=== PATIENT | male | born 1970 | race Caucasian/White ===

== ENCOUNTER 2017-12-30 15:57 | Emergency (ER) | payer BC ==
[2017-12-30 16:42] VITALS: BP 136/92
--- NOTE | 2017-12-30 16:57 | UC ---
Lower Extremity/Ankle HPI - HPI Summary HPI Summary: Patient states that he roused from sleep just this past Friday morning with pain in the outside of his right ankle and some swelling. He notes that this has gotten progressively worse. He states that at times it hurts so bad he is unable to walk on it. He denies any history of injury, fever, chills and overuse. He denies any history of other joint pains and there is no associated history of tick bite. He does have history of chronic back pain which requires a hydrocodone pill twice daily; however, that is not relieving the pain in his ankle. Patient also denies any history of gout. - History of Current Complaint Chief Complaint: UCLowerExtremity Stated Complaint: RT ANKLE CONCERN Time Seen by Provider: 12/30/17 16:47 Hx Obtained From: Patient Onset/Duration: Gradual Onset Pain Intensity: 8 Aggravating Factor(s): Standing, Ambulation Alleviating Factor(s): Nothing Able to Bear Weight: Yes - Allergies/Home Medications Allergies/Adverse Reactions: Allergies Allergy/AdvReac Type Severity Reaction Status Date / Time No Known Allergies Allergy Verified 12/30/17 16:35 Home Medications: Home Medications Hydrocodone/Acetaminophen [Hydrocodone-Acetamin 10-325 mg] 10 mg PO BID [History Confirmed 12/30/17] Losartan TAB* [Cozaar TAB*] 25 mg PO DAILY 12/30/17 [History Confirmed 12/30/17] PMH/Surg Hx/FS Hx/Imm Hx - Additional Past Medical History Additional PMH: Chronic back pain Cardiovascular History: Hypertension - Surgical History Surgical History: None - Family History Known Family History: Positive: None - Social History Occupation: Employed Full-time Alcohol Use: Occasionally Substance Use Type: None Smoking Status (MU): Never Smoked Tobacco Type: Smokeless Tobacco - Immunization History Vaccination Up to Date: Yes Review of Systems Constitutional: Negative Skin: Negative Eyes: Negative ENT: Negative Respiratory: Negative Cardiovascular: Negative Gastrointestinal: Negative Genitourinary: Negative Motor: Negative Neurovascular: Negative Musculoskeletal: Other: - R ankle paon/swelling Neurological: Negative Psychological: Negative Is Patient Immunocompromised?: No All Other Systems Reviewed And Are Negative: Yes Physical Exam Triage Information Reviewed: Yes Appearance: Well-Appearing Vital Signs: Initial Vital Signs Temp 98.5 F 08/28/18 16:30 Pulse 74 12/30/17 16:30 Resp 16 12/30/17 16:30 BP 136/92 12/30/17 16:30 Pulse Ox 98 12/30/17 16:30 Vital Signs Reviewed: Yes Eyes: Positive: Conjunctiva Clear ENT: Positive: Pharynx normal, TMs normal. Negative: Nasal congestion, Nasal drainage Neck: Positive: Supple, Nontender, No Lymphadenopathy Respiratory: Positive: Lungs clear, Normal breath sounds Cardiovascular: Positive: RRR, No Murmur Abdomen Description: Positive: Nontender, No Organomegaly, Soft Bowel Sounds: Positive: Present Musculoskeletal: Positive: Other: - RLE: No inguinal adenopathy. Hip is without erythema swelling or tenderness and active range of motion is intact. Right knee is without deformity, discoloration and is nontender plus has full range of motion. When compared to the left there is mild swelling that begins just below the knee but is much more significant to the ankle and dorsum of the foot. Skin is slightly pink as well. Patient states his calf is nontender when I palpate but it feels "tight". I could appreciate no cords. The right lateral ankle is exquisitely tender to palpation and is questionably warm. Any attempt at passive inversion or eversion makes the pain in the ankle much worse ; however, plantar and dorsiflexion are painless. The foot is nontender and has gross sensorivascular motor function. Neurological: Positive: Alert Psychological: Positive: Age Appropriate Behavior Skin Exam: Normal Lower Extremity Course/Dx - Course Course Of Treatment: There is no history of injury to suggest fracture or sprain. An occult fracture is still possible but unlikely . The swelling that begins just below the knee is concerning for DVT but the degree of ankle discomfort also raises concern for other pathology such as infection or Lyme disease. I think gout is unlikely. This pt requires a higher level of care for additional evaluation. Patient agrees to ER transfer but wishes to drive himself. [facility] ER Call, report given to Morteza Vila route carrier. Advised of history including nontraumatic pain and swelling to the right ankle / foot and worseing. plus swelling of the lower leg with increasing pain since the weekend and no history of injury. - Differential Dx/Diagnosis Provider Diagnoses: Acute pain and swelling to the right ankle with swelling extending into the foot. Acute swelling of the right lower leg. Discharge - Sign-Out/Discharge Documenting (check all that apply): Patient Departure All imaging exams completed and their final reports reviewed: No Studies - Discharge Plan Condition: Stable Disposition: TRANS HIGHER LVL OF CARE FAC Referrals: No Primary Care Phys,NOPCP [Primary Care Provider] - Additional Instructions: LEAVE HERE AND GO DIRECTLY TO THE [facility] DISCUSSED - Billing Disposition and Condition Condition: STABLE Disposition: Trans Higher Lvl of Care Fac
== END 2017-12-30 17:03 | disposition short-term general hospital (02) ==
LOC: UCCORT 15:57
DX: M25.571 Pain in right ankle and joints of right foot (principal); M25.471 Effusion, right ankle; M79.89 Other specified soft tissue disorders; I10 Essential (primary) hypertension; M54.5 Low back pain; G89.29 Other chronic pain
CPT/HCPCS: 99202; G0463